=== PATIENT | male | born 1990 | race Caucasian/White ===

== ENCOUNTER → 2017-09-09 | Outpatient (CLI) | payer OTHER ==
[~2017-09-09] MED LIST: CONRAY-43 43% 50ML VIAL (Q9960) As Ordered ONE; LIDOCAINE 1% MDV 20ML VIAL As Ordered ONE; TRIAMCINOLONE ACETONIDE SUSP 40 MG/ML VIAL (J3301) As Ordered ONE
--- NOTE | 2017-09-09 10:40 | REP ---
RIGHT HIP ARTHROGRAM: The procedure was performed by SHARI Schwartz under the direct supervision of Dr. Vaz. The procedure along with its risks, benefits, and complications were discussed with the patient prior to the examination. Informed consent was obtained both verbally and written. The right femoral neck was localized using fluoroscopic guidance. The skin was marked, prepped and draped in the usual sterile fashion. A procedural time out was performed to ensure that the correct patient, site and procedure were being performed. Local infiltrative anesthesia was achieved using 1% lidocaine. Under fluoroscopic observation, a 22-gauge spinal needle was inserted and advanced to the femoral neck. 0.5 mL of Conray 43 were injected to verify placement. 10 mL of a solution containing 9 mL of 1% Xylocaine and 1 mL of Kenalog 40 was injected into the joint space. The needle was then removed. The patient tolerated the procedure well and had no immediate complications 0.1 minutes of fluoroscopy time were utilized for this procedure. Reviewed by SHARI Schwartz 09/09/2017 10:41 AEdited and Signed by Kristian Vaz MD 09/09/2017 11:00 A
== END ==
LOC: M RADPRO 07:50
PROVIDERS: ATTEND Orthopaedic Surgery
DX: M24.151 Other articular cartilage disorders, right hip (principal)
CPT/HCPCS: 20610; 77002; J3301; Q9960